=== PATIENT | male | born 1955 | race Caucasian/White ===

== ENCOUNTER → 2017-12-19 | Outpatient (CLI) | payer OTHER ==
[~2017-12-19] MED LIST: MAGNESIUM OXID200 MG PO; MEDROL DOSPAK21 TAB PO; STONE FREE; ULTRAM 50MG TAB50 MG PO; VICODIN; VITAMIN B-625 MG PO
--- NOTE | ~2017-12-19 | EKG ---
[place] [address] [facility] [employer] [place] [address] ELECTROCARDIOGRAM REPORT Name: TRI BEDOYA Room #: REG [facility]#: [id number] Admission: 12/19/17 Attend Phys: Rachel Orellana MD Discharge: Date of : 57 Report #: [id number] THIS REPORT FOR: //name// [facility] Test Date: 2017-12-19 Test Time: 14:37:33 Pat Name: TRI BEDOYA Department: Room: Gender: [employer] Operator: Nery ELIZONDO : 1955 Requested By: Rachel Orellana Order Number: [id number] MD: Michael Garza Measurements Intervals Check Rate: 62 P: 79 MI: 147 QRS: -10 QRSD: 106 T: 37 QT: 406 QTc: 413 Interpretive Statements Sinus rhythm Poor R wave progression No previous ECG available for comparison Electronically Signed On 12-20-2017 8:22:17 CDT by Michael Garza [email or web address] <ELECTRONICALLY SIGNED> By: Michael Garza MD, [facility] 12/20/17 0822 1437 1437 Michael Garza MD, FACC /EPI
== END | disposition home or self-care (01) ==
LOC: LITH 13:44
DX: N20.0 Calculus of kidney (principal); Z98.890 Other specified postprocedural states; Z79.891 Long term (current) use of opiate analgesic